=== PATIENT | female | born 1960 | race Two or more races ===

== ENCOUNTER → 2025-06-26 | Outpatient (CLI) | payer MEDICAID, SELFPAY ==
[2025-06-26 14:02] LABS: INR 1.0 (0.9-1.3); Partial Thromboplastin Time 26.8 Seconds (22.0-36.0); Prothrombin Time 10.9 Seconds (9.0-12.2)
[2025-06-26 14:10] LABS: Alanine Aminotransferase 171 U/L (10-49); Albumin, Serum 4.7 gm/dL (3.4-4.8); Albumin/Globulin Ratio 1.2 (1.2-2.2); Alkaline Phosphatase 82 U/L (46-116); Anion Gap 10 (7-16); Aspartate Amino Transferase 116 U/L (0-34); BUN/Creatinine Ratio 11 Ratio (12-20); Bilirubin,Total 0.5 mg/dL (0.3-1.2); Blood Urea Nitrogen 21 mg/dL (9-23); Calcium 9.8 mg/dL (8.3-10.6); Calcium (Corrected) 9.8 mg/dL (8.5-10.1); Carbon Dioxide 24.2 mMol/L (20.0-31.0); Chloride 109 mMol/L (98-107); Creatinine (Component) 2.0 mg/dL (0.6-1.3); Globulin 3.8 gm/dL (2.3-3.5); Glucose 102 mg/dL (74-106); Osmolality,Calculated 287 (275-295); Potassium 4.0 mMol/L (3.4-5.1); Sodium 143 mMol/L (136-145); Total Protein 8.5 gm/dL (5.7-8.2); eGFR 28 See Note
[2025-06-26 14:19] LABS: Iron 105 mcg/dL (50-170); Percent Iron Saturation 35 % (20-55); Total Iron Binding Capacity 294 mcg/dL (250-425); Unsaturated Iron Binding 189 (225-295)
[2025-06-26 14:27] LABS: AFP Non-Pregnant 2.90 ng/mL (<8.10); Hepatitis B Surface Antigen Non Reactive (Non React)
[2025-07-02 23:36] LABS: HCV RNA, PCR <15 NOT DETECTED IU/mL; Sm Antibody <1.0 NEG AI (<1.0 NEGATIVE)
[2025-07-04 07:36] LABS: ANA Pattern NUCLEAR, HOMOGENEOUS; ANA Screen, IFA POSITIVE (NEGATIVE); ANA Titer 1:1280 titer; ANA Titer 1:40 titer; ANA Titer >=1:1280 titer; Alpha-1-Antitrypsin* 165 mg/dL (83-199); Ceruloplasmin* 30 mg/dL (14-48); Mitochondrial Ab NEGATIVE (NEGATIVE); Sm/RNP Antibody <1.0 NEG AI (<1.0 NEGATIVE)
[2025-07-04 07:37] LABS: HCV RNA, PCR Log IU <1.18 NOT DETECTED Log IU/mL; LKM-1 Antibody (IgG)* <20.0 U
== END | disposition home or self-care (01) ==
LOC: COPL 11:57
PROVIDERS: PCP Nurse Practitioner Primary Care; Referring Provider Internal Medicine Gastroenterology; Visit Provider Internal Medicine Gastroenterology
DX: K74.60 Unspecified cirrhosis of liver (principal); Z12.11 Encounter for screening for malignant neoplasm of colon
CPT/HCPCS: 36415; 80053; 82103; 82105; 82140; 82390; 83540; 83550; 85610; 85730; 86038; 86235; 86255; 86376; 87340; 87522

== ENCOUNTER → 2025-06-28 | Outpatient (CLI) | payer MEDICAID, SELFPAY ==
[2025-06-28 11:27] LABS: Basophils # (Auto) 0.0 Thou/mm3 (0.0-0.2); Basophils % (Auto) 1 % (0-2.5); Eosinophils # (Auto) 1.0 Thou/mm3 (0.0-0.5); Eosinophils % (Auto) 12 % (0-10); Hematocrit 34.0 % (36.0-46.0); Hemoglobin 11.3 g/dL (12.0-16.0); Immature Granulocytes Auto 0.02 Thou/mm3 (0.00-0.00); Lymphocytes # (Auto) 2.7 Thou/mm3 (1.0-4.8); Lymphocytes % (Auto) 33 % (10-50); Mean Corpuscular HGB Conc 33.2 g/dl (31.0-37.0); Mean Corpuscular Hemoglobin 32.5 pg (25.0-35.0); Mean Corpuscular Volume 98 fL (80-100); Monocytes # (Auto) 0.8 Thou/mm3 (0.0-0.8); Monocytes % (Auto) 10 % (0-12); Neutrophils # (Auto) 3.5 Thou/mm3 (1.8-7.7); Neutrophils % (Auto) 44 % (37-80); Nucleated Red Blood Cell # 0.00 Thou/mm3 (0.00-0.00); Nucleated Red Blood Cell % 0 /100 WBC (0); Platelet Count 194 Thou/mm3 (140-440); RDW Standard Deviation 44.2 fL (36.4-46.3); Red Blood Count 3.48 Miln/mm3 (4.00-5.20); White Blood Count 8.1 Thou/mm3 (3.6-11.0)
[2025-06-28 11:42] LABS: Ammonia 26 uMol/L (11-32)
== END | disposition home or self-care (01) ==
LOC: COPL 10:46
PROVIDERS: PCP Nurse Practitioner Primary Care; Referring Provider Internal Medicine Gastroenterology; Visit Provider Internal Medicine Gastroenterology
DX: K74.60 Unspecified cirrhosis of liver (principal); Z12.11 Encounter for screening for malignant neoplasm of colon
CPT/HCPCS: 36415; 82140; 85025